=== PATIENT | male | born 1995 | race Caucasian/White ===

== ENCOUNTER 2016-06-15 10:07 | Emergency (ER) | payer OTHER ==
[2016-06-15 10:15] VITALS: BP 142/64; PULSE 69; TEMP 97.7; BMI 33.2
--- NOTE | 2016-06-15 10:51 | PDOC ---
History of Present Illness - General Chief Complaint: Injury Stated Complaint: SWOLLEN LT RING FINGER Time Seen by Provider: 06/15/16 10:47 History Source: Patient Exam Limitations: No Limitations - History of Present Illness Initial Comments: CHIEF COMPLAINT: 20 y/o afebrile male c/o left 4th finger pain and deformity x 2 months. HISTORY OF PRESENT ILLNESS: The patient states he fell onto his left hand 2 months ago. He never had it checked out because he thought it was going to heal on its own. He states it is not as swollen but is still painful and he can 't bend it or extend it. He is left handed. Vital signs on arrival are within normal limits. REVIEW OF SYSTEMS: GENERAL/CONSTITUTIONAL: no fever/chills. No weakness. No weight change. MUSCULOSKELETAL: +left 4th finger pain and deformity. No neck or back pain. SKIN: No rash or easy bruising. NEUROLOGIC: No headache, vertigo, loss of consciousness, or loss of sensation. PHYSICAL EXAM: VITAL_SIGNS: within normal limits GENERAL_APPEARANCE: alert, cooperative, mild obvious discomfort. MENTAL_STATUS: speech clear, oriented X 3, responds appropriately to questions. NEURO: motor intact and sensory intact in injured extremity. EXTREMITIES: 4th digit of left hand is deformed at the PIP joint. PIP joint in fixed flexion. Pt cannot extend or full flex at the 4th PIP joint. TTP of PIP joint. SKIN: warm, dry, good color. Past History - Past Medical History Allergies/Adverse Reactions: Allergies Allergy/AdvReac Type Severity Reaction Status Date / Time No Known Allergies Allergy Verified 06/15/16 10:15 Home Medications: Ambulatory Orders NK [No Known Home Medication] 06/15/16 Other medical history: PATIENT DENIES MEDICAL HISTORY - Psycho/Social/Smoking Cessation Hx Suicidal Ideation: No Smoking History: Never smoked Hx Alcohol Use: No Drug/Substance Use Hx: No *Physical Exam - Vital Signs Last Vital Signs Temp Pulse Resp BP Pulse Ox 97.7 F 69 18 142/64 99 06/15/16 10:12 06/15/16 10:12 06/15/16 10:12 06/15/16 10:12 06/15/16 10:12 Medical Decision Making - Medical Decision Making A/P: 20 y/o afebrile male with left 4th digit finger fracture x 2 months. Plan is as follows: 1. Xray left fingers xray left finger IMPRESSION: soft tissue swelling and deformity at the base of the fourth PIP joint with flexion deformity and possible intra-articular body as discussed above. Linear lucency at the base of the middle phalanx of the fifth digit which may reflect vascular channel versus nondisplaced fracture. Explained the results to the patient. He does state he fell onto his finger tip. He has had no fevers and does admit the swelling has improved. Splinting is unnecessary at this time as it's too far out from injury. Will send to ortho for follow up. Provided the patient with the copy of the xray results. The patient verbalizes understanding of all instructions, has no further questions and is awaiting discharge. *DC/Admit/Observation/Transfer Diagnosis at time of Disposition: Finger fracture, left Qualifiers: Encounter type: initial encounter Finger: ring finger Fracture type: closed Phalanx: middle Fracture alignment: nondisplaced Qualified Code(s): S62.655A - Nondisplaced fracture of medial phalanx of left ring finger, initial encounter for closed fracture - Discharge Dispostion Disposition: HOME Condition at time of disposition: Good - Referrals Referrals: Yosef Spencer MD [Staff Physician] - - Patient Instructions Printed Discharge Instructions: DI for Finger Fracture, How To Perform RICE ( Rest, Ice, Compress, Elevate) Additional Instructions: Discharge Instructions: -Call Dr. Spencer today to schedule follow up appointment -Bring xray results to the Orthopedic doctor -Follow RICE instructions -Return to the ER with any worsening or concerning symptoms
== END 2016-06-15 12:22 | disposition home or self-care (01) ==
LOC: JERFT 10:07
DX: S62.655A Nondisplaced fracture of middle phalanx of left ring finger, initial encounter for closed fracture (principal); W19.XXXA Unspecified fall, initial encounter; Y93.9 Activity, unspecified; Y92.89 Other specified places as the place of occurrence of the external cause; Y99.9 Unspecified external cause status
CPT/HCPCS: 73140-TC-LT; 99281-25

== ENCOUNTER 2016-06-28 11:02 | Day surgery (SDC) | payer OTHER ==
[2016-06-19 18:36] VITALS: BMI 32.3
[2016-06-28] MEDS ORDERED: MIDAZOLAM HCL 2 MG/2 ML SINGLE DOSE VIAL ONE (13:05)
[2016-06-28] MEDS ORDERED: PROPOFOL 20 ML ONE ×2 (13:07→13:41)
[2016-06-28] MEDS ORDERED: BUPIVACAINE HCL/PF 0.25% (2.5MG/ML) 10 ML VIAL IJ ONE (16:00)
[2016-06-28] MEDS ORDERED: ONDANSETRON 4 MG/2 ML VIAL ONE (16:11)
[2016-06-28] MEDS ORDERED: oxyCODONE HCL 5 MG TABLET PO PRN (16:18)
[2016-06-28] MEDS ORDERED: ONDANSETRON 4 MG/2 ML VIAL IVPUSH PRN (16:18)
[2016-06-28 17:28] VITALS: TEMP 98.7
[2016-06-28 18:14] VITALS: BP 118/84; PULSE 80
--- NOTE | 2016-06-29 18:24 | OP ---
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 POSTOPERATIVE DIAGNOSES: 1. 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 2. Early arthrosis, proximal phalanx. OPERATIVE PROCEDURE: Open treatment of left ring finger proximal interphalangeal joint fracture dislocation/malunion with open reduction and internal fixation and josselyn-hamate arthroplasty. SURGEON: Aline Jansen MD [employer] HEAD: DYLAN Castro ANESTHESIA: General. COMPLICATIONS: None. ESTIMATED BLOOD LOSS: Minimal. INDICATIONS FOR PROCEDURE: The patient is a 20-year-old male who is several months status post this injury and indicated for operative treatment. Risks, benefits, alternatives were discussed with the patient at length, and proper informed consent was obtained. I specifically explained to the patient and his mother that this is a very serious injury and very unlikely to get a complete recovery, but hopefully this treatment will optimize his recovery to the best possible. He desired to proceed. PROCEDURE: After proper identification of patient and correct operative site, patient was brought to operating room, placed supine on operating table, all prominences well padded. General anesthesia was provided by the anesthesiologist, and adequate for procedure. The left upper extremity was prepped and draped in the usual sterile fashion. A well-padded tourniquet was placed over the sterile prep. Time-out procedure was performed. Intravenous antibiotics were given. Esmarch bandage used to exsanguinate the left upper extremity. Tourniquet was inflated to 250 mmHg. A volar Rebecca incision made over the proximal interphalangeal joint. Incision was taken sharply through the skin with blunt and sharp dissection to the subcutaneous tissues. Care was taken to protect the neurovascular structures. The interval between the A2 and A4 pulleys was divided and elevated off of the flexor tendons. The flexor tendons were retracted, and the volar plate was released distally. The collateral ligaments were then released, and the joint was shotgunned. A severely depressed malunion of the base of the middle phalanx was noted, and the joint was dislocated dorsally. The proximal phalanx articular cartilage had early degenerative changes and chondromalacia. The volar 60% of the articular surface of the middle phalanx was destroyed and impacted distally. This was debrided, and a healthy bed of tissue was prepared on the volar aspect of the base of the middle phalanx. Collateral ligaments were further released in order to allow reduction of the PIP joint. A dorsal incision was then made over the 4th and 5th carpometacarpal joints. Incision was taken sharply through the skin with blunt and sharp dissection of subcutaneous tissues. Extensor mechanisms were retracted, and the capsule over the 4th and 5th carpometacarpal joints was developed. Using an oscillating saw, a josselyn-hamate allograft was taken at the ridge between the 4th and 5th carpometacarpal joints. This was taken to match the recessed area in the middle phalanx. This was then brought to the proximal interphalangeal joint and further fashioned to fit perfectly into the missing segment of the articular surface. This was held with three 1.0-mm Synthes stainless steel screws. This provided secure stable fixation. A small amount of bone graft was packed adjacent to this. The joint was then able to be reduced and was stable. It was taken through a range of motion, and 0 to 100 degrees was achievable without any stress. The volar plate was then repaired to the collateral ligaments distally, which provided further stability. Radiographs were taken in multiple planes to confirm proper reduction as well as placement and sizing of all hardware. The wound was repaired using a 5-0 fast-absorbing plain gut and Dermabond. Dorsal wound was irrigated and repaired in layers using 4-0 Vicryl and 4-0 nylon. Sterile dressings were applied. Splint was placed. The patient was reversed from anesthesia and brought to the recovery room in stable condition. He tolerated the procedure well. DYLAN Castro, the orthodontic assistant, was integral throughout this procedure. The procedure could not have been performed without a skilled operative orthodontic assistant. ALINE JANSEN M.D. [id number]
== END 2016-06-28 17:50 | disposition home or self-care (01) ==
LOC: FASU 11:02
PROVIDERS: ATTEND Orthopaedic Surgery Hand Surgery
PROC: 0RSX04Z Reposition Left Finger Phalangeal Joint with Internal Fixation Device, Open Approach (ICD-10-PCS; 2016-06-28)
PROC: 0PSV04Z Reposition Left Finger Phalanx with Internal Fixation Device, Open Approach (ICD-10-PCS; 2016-06-28)
PROC: 0RQX0ZZ Repair Left Finger Phalangeal Joint, Open Approach (ICD-10-PCS; principal; 2016-06-28 13:53)
DX: S62.615P Displaced fracture of proximal phalanx of left ring finger, subsequent encounter for fracture with malunion (principal); S63.285A Dislocation of proximal interphalangeal joint of left ring finger, initial encounter; X58.XXXD Exposure to other specified factors, subsequent encounter; X58.XXXA Exposure to other specified factors, initial encounter; Y93.9 Activity, unspecified; Y92.9 Unspecified place or not applicable
CPT/HCPCS: 73140-TC-LT; 94760

== ENCOUNTER 2016-10-03 09:47 | Emergency (ER) | payer OTHER ==
[2016-10-03 09:57] VITALS: BP 138/88; PULSE 74; TEMP 98.6; BMI 29.0
[2016-10-03] MEDS ORDERED: CIPROFLOXACIN 250 MG TABLET (RESTRICTED TO ID) PO ONE (11:23)
[2016-10-03] MEDS ORDERED: TETANUS AND DIPHTHERIA TOXOID 0.5 ML DISP.SYRIN IM ONE (11:23)
--- NOTE | 2016-10-03 11:32 | PDOC ---
History of Present Illness - General Chief Complaint: Injury Stated Complaint: INJURY Time Seen by Provider: 10/03/16 10:48 History Source: Patient Exam Limitations: No Limitations - History of Present Illness Initial Comments: 10/03/16 11:31 20 yr male with puncture wound to bottom left foot stepped on a screw today. Pt was wearing a shoe outside stepped on a screw. no PMH no surgical history. tetanus is unknown. 10/03/16 11:34 Occurred: reports: just prior to arrival Severity: Yes: mild Lower Extremity Pain Location: left: foot (plantar surface) Lower Ext. Injury Location - Specific Injury Location Foot: left foot pain (puncture wound plantar surface ) Past History - Past Medical History Allergies/Adverse Reactions: Allergies Allergy/AdvReac Type Severity Reaction Status Date / Time No Known Allergies Allergy Verified 10/03/16 09:49 Home Medications: Ambulatory Orders Ciprofloxacin [Cipro (Restricted To Id)] 250 mg PO BID #10 tablet 10/03/16 Anemia: No Asthma: No Cancer: No Cardiac Disorders: No CVA: No COPD: No CHF: No Dementia: No Diabetes: No GI Disorders: No Disorders: No HTN: No Hypercholesterolemia: No Liver Disease: No Seizures: No Thyroid Disease: No Other medical history: none - Psycho/Social/Smoking Cessation Hx Anxiety: No Suicidal Ideation: No Smoking History: Never smoked Have you smoked in the past 12 months: No Information on smoking cessation initiated: No Hx Alcohol Use: No Drug/Substance Use Hx: No Substance Use Type: None Hx Substance Use Treatment: No Review of Systems - Review of Systems Able to Perform ROS?: Yes Is the patient limited Telugu proficient: No Constitutional: No: Symptoms Reported HEENTM: No: Symptoms Reported Respiratory: No: Symptoms reported Cardiac (ROS): No: Symptoms Reported ABD/GI: No: Symptoms Reported : No: Symptoms Reported Musculoskeletal: No: Symptoms Reported Integumentary: Yes: See HPI *Physical Exam - Vital Signs Last Vital Signs Temp Pulse Resp BP Pulse Ox 98.6 F 74 18 138/88 100 10/03/16 09:50 10/03/16 09:50 10/03/16 09:50 10/03/16 09:50 10/03/16 09:50 - Physical Exam General Appearance: Yes: Nourished, Appropriately Dressed HEENT: positive: EOMI, MARTELL Neck: positive: Supple Respiratory/Chest: positive: Lungs Clear, Normal Breath Sounds Cardiovascular: positive: Regular Rhythm, Regular Rate Gastrointestinal/Abdominal: positive: Normal Bowel Sounds, Soft Musculoskeletal: positive: Normal Inspection Extremity: positive: Normal Capillary Refill, Normal Inspection, Normal Range of Motion, Other (0.5cm puncture wound to bottom of left foot mild bleeding noted ) Integumentary: positive: Normal Color, Dry, Warm Neurologic: positive: Fully Oriented, Alert, Normal Mood/Affect, Normal Response , Motor Strength 5/5 Procedures - Laceration/Wound Repair Left Plantar Foot Wound Explored: contaminated (foot cleaned with betadine scrub soaked in warm soapy water ) Sterile Dressing Applied: Yes Progress: 10/03/16 11:42 bacitracin placed with bandaid Medical Decision Making - Medical Decision Making 10/03/16 11:42 cc: puncture wound to the bottom of the foot will clean and irrigate, bacitracin placed and bandaid to bottom of foot will update tetanus and place on cipro for 5 days 10/03/16 11:55 *DC/Admit/Observation/Transfer Diagnosis at time of Disposition: Puncture wound - Discharge Dispostion Disposition: HOME Condition at time of disposition: Good - Prescriptions Prescriptions: Ciprofloxacin [Cipro (Restricted To Id)] 250 mg PO BID #10 tablet - Patient Instructions Additional Instructions: keep the wound clean and dry soak in antibacterial soap and warm water once a day cover with bandaid do not walk around barefoot or wear flip flops always wear socks follow up in ER in 48hrs for a wound check
== END 2016-10-03 12:01 | disposition home or self-care (01) ==
LOC: JERFT 09:47
PROC: 3E0234Z Introduction of Serum, Toxoid and Vaccine into Muscle, Percutaneous Approach (ICD-10-PCS; principal; 2016-10-03)
DX: S91.332A Puncture wound without foreign body, left foot, initial encounter (principal); W45.0XXA Nail entering through skin, initial encounter; Y93.89 Activity, other specified; Y92.89 Other specified places as the place of occurrence of the external cause
CPT/HCPCS: 90471; 90715; 99281-25

== ENCOUNTER 2017-05-03 05:49 | Emergency (ER) | payer OTHER ==
[2017-05-03] MEDS ORDERED: SODIUM CHLORIDE 0.9% 1000 ML INFUS.BAG IV ONE (06:23)
[2017-05-03] MEDS ORDERED: ONDANSETRON 4 MG/2 ML VIAL IVPUSH ONE (06:23)
[2017-05-03 06:27] VITALS: BMI 28.1
--- NOTE | 2017-05-03 06:28 | PDOC ---
Attending Attestation - HPI HPI: 05/03/17 06:48 The patient is a 21-year-old male, with no significant past medical history, who presents to the ED with 2 days of fever, cough, sore throat, and body aches. The patient reports experiencing a loss of appetite due to nausea, but he denies any vomiting. The patient denies any diarrhea or abdominal pain. He denies any recent sick contacts. <StuShantal - Last Filed: 05/03/17 06:48> - Resident Resident Name: Johnny Walter - ED Attending Attestation I have performed the following: I have examined & evaluated the patient, The case was reviewed & discussed with the resident, I agree w/resident's findings & plan, Exceptions are as noted - Physicial Exam PE: 05/03/17 19:29 *Physical Exam General Appearance: Yes: Appropriately Dressed. No: Apparent Distress, Intoxicated HEENT: positive: EOMI, MARTELL, Normal ENT Inspection, Normal Voice, TMs Normal, Pharynx Normal. negative: Pale Conjunctivae, Photophobia, Scleral Icterus (R), Scleral Icterus (L) Neck: positive: Trachea midline, Normal Thyroid, Supple. negative: Tender, Rigid, Carotid bruit, Stridor, Lymphadenopathy (R), Lymphadenopathy (L), Thyromegaly Respiratory/Chest: positive: Lungs Clear, Normal Breath Sounds. negative: Chest Tender, Respiratory Distress, Accessory Muscle Use, Labored Respiration, RES, Crackles, Rales, Rhonchi, Stridor, Wheezing, Dullness Cardiovascular: positive: Regular Rhythm, Regular Rate, S1, S2. negative: Edema , JVD, Murmur, Bradycardia, Tachycardia Vascular Pulses: Dorsalis-Pedis (R): 2+, Doralis-Pedis (L): 2+ Gastrointestinal/Abdominal: positive: Normal Bowel Sounds, Flat, Soft. negative : Tender, Organomegaly, Pulsatile Mass, Increased Bowel Sounds, Decreased BS, Distended, Guarding, Rebound, Hernia, Hepatomegaly, Spleenomegaly Lymphatic: negative: Adenopathy, Tenderness Musculoskeletal: positive: Normal Inspection. negative: CVA Tenderness, Decreased Range of Motion Extremity: positive: Normal Capillary Refill, Normal Inspection, Normal Range of Motion, Pelvis Stable. negative: Tender, Pedal Edema, Swelling, Erythema Integumentary: positive: Normal Color, Dry, Warm. negative: Cyanotic, Erythema , Jaundice, Rash Neurologic: positive: senior mechanical designer II-XII NML intact, Fully Oriented, Alert, Normal Mood/ Affect, Motor Strength 5/5. negative: EOM Palsy, Facial Droop, Sensory Deficit - Medical Decision Making 05/03/17 19:29 Pt treated and released <Ubaldo Garvey - Last Filed: 05/03/17 19:30> Attestations - Attestations 05/03/17 06:48 Documentation prepared by Shantal Peraza, acting as medical sales consultant for Ubaldo Garvey MD. <Shantal Preaza - Last Filed: 05/03/17 06:48>
[2017-05-03] MEDS ORDERED: OSELTAMIVIR PHOSPHATE 75 MG CAPSULE PO SCH ×2 (06:38→10:00)
[2017-05-03] MEDS ORDERED: OSELTAMIVIR PHOSPHATE 75 MG CAPSULE ONE (06:39)
[2017-05-03] MEDS ORDERED: ONDANSETRON 4 MG/2 ML VIAL ONE (06:39)
--- NOTE | 2017-05-03 06:44 | PDOC ---
History of Present Illness - General Chief Complaint: Sore Throat Stated Complaint: SORE THROAT/HEADACHE Time Seen by Provider: 05/03/17 06:22 History Source: Patient Exam Limitations: No Limitations - History of Present Illness Initial Comments: 05/03/17 06:38 The patient is a 21M with no PMH who presents to the ER with complaints of sore throat and fever. The patient states that 2 days ago he began to develop a sore throat, cough, and then subsequently developed a fever and muscle aches, particularly in his lower back and arms. He also states he has not had an appetite and has been nauseous but denies any vomiting. He denies any sick contacts. Past History - Past Medical History Allergies/Adverse Reactions: Allergies Allergy/AdvReac Type Severity Reaction Status Date / Time No Known Allergies Allergy Verified 05/03/17 06:15 Home Medications: Ambulatory Orders Oseltamivir Phosphate [Tamiflu -] 75 mg PO BID #9 capsule 05/03/17 Anemia: No Asthma: No Cancer: No Cardiac Disorders: No CVA: No COPD: No CHF: No Dementia: No Diabetes: No GI Disorders: No Disorders: No HTN: No Hypercholesterolemia: No Liver Disease: No Seizures: No Thyroid Disease: No - Suicide/Smoking/Psychosocial Hx Smoking History: Never smoked Have you smoked in the past 12 months: No Information on smoking cessation initiated: No Hx Alcohol Use: No Drug/Substance Use Hx: No Substance Use Type: None Hx Substance Use Treatment: No Review of Systems - Review of Systems Able to Perform ROS?: Yes Comments:: 05/03/17 06:40 GENERAL/CONSTITUTIONAL: Positive for fevers and chills. No weakness. HEAD, EYES, EARS, NOSE AND THROAT: Positive for sore throat. No change in vision. No ear pain or discharge. CARDIOVASCULAR: No chest pain, palpitations, or lightheadedness. RESPIRATORY: Positive for cough. No wheezing, shortness of breath, or hemoptysis. GASTROINTESTINAL: Positive for nausea. No vomiting, diarrhea, constipation, or abdominal pain. GENITOURINARY: No dysuria, frequency, hematuria, or change in urination. MUSCULOSKELETAL: Postive for myalgias. No neck or back pain. SKIN: No rash or lesions. NEUROLOGIC: Positive for headache. No numbness, tingling, weakness, loss of consciousness, or change in strength/sensation. ENDOCRINE: No increased thirst. No abnormal weight change. HEMATOLOGIC/LYMPHATIC: No anemia, easy bleeding, or history of blood clots. ALLERGIC/IMMUNOLOGIC: No hives or skin allergy. Is the patient limited Omani proficient: No *Physical Exam - Vital Signs Last Vital Signs Temp Pulse Resp BP Pulse Ox 102.4 F H 112 H 20 163/88 98 05/03/17 06:15 05/03/17 06:15 05/03/17 06:15 05/03/17 06:15 05/03/17 06:15 - Physical Exam Comments: 05/03/17 06:41 GENERAL: Well developed, well nourished. Awake and alert. No acute distress. HEENT: Normocephalic, atraumatic. Hearing grossly normal. Moist mucous membranes. PERRLA, EOMI. No conjunctival pallor. Sclera are non-icteric. Oropharynx is erythematous with mildly swollen tonsils bilaterally. No SALESPERSON BOOKS noted. NECK: Supple. Full ROM. No JVD. Mild lymphadenopathy. CARDIOVASCULAR: Regular rate and rhythm. No murmurs, rubs, or gallops. PULMONARY: No evidence of respiratory distress. Lungs clear to auscultation bilaterally. No wheezing, rales or rhonchi. ABDOMINAL: Soft. Non-tender. Non-distended. No rebound or guarding. GENITOURINARY: No CVA tenderness bilaterally. MUSCULOSKELETAL: Normal range of motion at all joints. No bony deformities or tenderness. EXTREMITIES: No cyanosis. No clubbing. No edema. No calf tenderness. SKIN: Warm and dry. Normal capillary refill. No rashes. No jaundice. NEUROLOGICAL: Alert, awake, appropriate. Cranial nerves 2-12 intact. Normal speech. Gait is normal without ataxia. PSYCHIATRIC: Cooperative. Good eye contact. Appropriate mood and affect. ED Treatment Course - LABORATORY CBC & Chemistry Diagram: 05/03/17 06:31 05/03/17 06:31 Medical Decision Making - Medical Decision Making 05/03/17 06:42 The patient is a 21M with no PMH who presents with flu-like symptoms. Labs sent including rapid strep. Meds given for nausea and fever, and hydration with NS. Pending labs and d/c with tamiflu prescription. 05/03/17 06:55 Pt signed out to Dr. Morgan, day team. *DC/Admit/Observation/Transfer Diagnosis at time of Disposition: Sore throat - Discharge Dispostion Disposition: HOME Condition at time of disposition: Stable Admit: No - Prescriptions Prescriptions: Oseltamivir Phosphate [Tamiflu -] 75 mg PO BID #9 capsule - Referrals Referrals: Eros Landon [Primary Care Provider] - - Patient Instructions Printed Discharge Instructions: Sore Throat Additional Instructions: Please return to the ER if you have any signs or symptoms of chest pain, shortness of breath, uncontrollable fever, chills, nausea, vomiting, numbness, tingling, or weakness in any part of your body, changes in vision, or slurred speech. Please take your medications as prescribed. Please follow up with your primary care physician in 2-3 days. Please return to the ER if symptoms persist, worsen, or new symptoms arise. - Post Discharge Activity
[2017-05-03 06:48] LABS: BASO % 0.5 % (0-2.0); HEMATOCRIT 42.7 % (35.4-49); LYMPH % 9.1 % (8-40); MCH 31.5 pg (25.7-33.7); MCHC 35.2 g/dl (32.0-35.9); MEAN CELL VOLUME 89.5 fl (80-96); MEAN PLT VOLUME 8.4 fl (7.5-11.1); MONO % 12.1 % (3.8-10.2); NEUT % 78.3 % (42.8-82.8); PLATELET COUNT 186 K/MM3 (134-434); RBC 4.77 M/mm3 (4.00-5.60); RDW 12.8 % (11.9-15.9)
[2017-05-03] MEDS ORDERED: OSELTAMIVIR PHOSPHATE 75 MG CAPSULE PO ONE (07:00)
[2017-05-03 07:05] LABS: URINE APPEARANCE CLEAR; URINE BILIRUBIN NEGATIVE (<2.0 mg/dL); URINE BLOOD NEGATIVE (NEGATIVE); URINE COLOR AMBER; URINE GLUCOSE (UA) NEGATIVE (NEGATIVE); URINE KETONE NEGATIVE (NEGATIVE); URINE LEUK ESTERASE NEGATIVE (NEGATIVE); URINE NITRITE NEGATIVE (NEGATIVE); URINE UROBILINOGEN 4.0 E.U/dl mg/dL (0.2-1.0)
[2017-05-03] MEDS ORDERED: ACETAMINOPHEN 325 MG TABLET (FP) PO ONE (07:07)
[2017-05-03 07:09] LABS: URINE PROTEIN 1+ (NEGATIVE)
[2017-05-03 07:10] LABS: EPI CELLS RARE /HPF (FEW); URINE MUCUS MODERATE
[2017-05-03 07:11] LABS: ALBUMIN 4.3 g/dl (3.4-5.0); ALK PHOS 81 U/L (45-117); ANION GAP 12 (8-16); BILIRUBIN,TOTAL 0.8 mg/dL (0.2-1.0); BLOOD UREA NITROGEN 13 mg/dL (7-18); CALCIUM 9.1 mg/dL (8.5-10.1); CHLORIDE 99 mmol/L (98-107); CO2 26 mmol/L (21-32); CREATININE 1.3 mg/dL (0.7-1.3); GLUCOSE,RANDOM 109 mg/dL (74-106); POTASSIUM 4.2 mmol/L (3.5-5.1); SGOT/AST 28 U/L (15-37); SGPT/ALT 38 U/L (12-78); SODIUM 137 mmol/L (136-145); TOT PROT 7.8 g/dl (6.4-8.2)
--- NOTE | 2017-05-03 07:14 | PDOC ---
*Physical Exam - Vital Signs Last Vital Signs Temp Pulse Resp BP Pulse Ox 102.4 F H 112 H 20 163/88 98 05/03/17 06:15 05/03/17 06:15 05/03/17 06:15 05/03/17 06:15 05/03/17 06:15 - Physical Exam Comments: 05/03/17 08:45 GENERAL: Awake, alert, and fully oriented, in no acute distress EYES: PERRLA, EOMI, sclera anicteric, conjunctiva clear ENT: Oropharynx clear without exudates. Moist mucosa NECK: Nontender, Normal ROM, supple, no lymphadenopathy LUNGS: Breath sounds equal, clear to auscultation bilaterally. No wheezes, and no crackles HEART: Regular rate and rhythm, normal S1 and S2, no murmurs, rubs or gallops ABDOMEN: Soft, nontender, normoactive bowel sounds. No guarding, no rebound. No masses ED Treatment Course - LABORATORY CBC & Chemistry Diagram: 05/03/17 06:31 05/03/17 06:31 - ADDITIONAL ORDERS Additional order review: Laboratory Results 05/03/17 06:50 Urine Color Dejah Urine Appearance Clear Urine pH 6.0 Ur Specific [place] 1.030 Urine Protein 1+ H Urine Glucose (UA) Negative Urine Ketones Negative Urine Blood Negative Urine Nitrite Negative Urine Bilirubin Negative Urine Urobilinogen 4.0 e.u/dl Ur Leukocyte Esterase Negative 05/03/17 06:31 Group A Strep Rapid Antigen - Preliminary Throat - Medications Given in the ED: ED Medications Discontinued Medications Generic Name Dose Route Start Last Admin Trade Name Freq PRN Reason Stop Dose Admin Ondansetron HCl 4 mg 05/03/17 06:23 05/03/17 07:01 Zofran Injection IVPUSH 05/03/17 06:24 4 mg ONCE ONE Administration Sodium Chloride 1,000 ml 05/03/17 06:23 05/03/17 07:00 Normal Saline - IV 05/03/17 06:24 1,000 ml ONCE ONE Administration Medical Decision Making - Medical Decision Making 05/03/17 07:14 Patient signed out by Dr. Walter (Resident) and Dr. Garvey (Attending) 21 year old male present with 2 day h/o sore throat, non-productive cough, myalgias. Febrile + tachycardic @ presentation. Patient recieving IV NS, c/o chills. Physical exam shows supple neck, mildly erythematous oropharnyx w/o exudates, lungs CLTA, B/L paraspinal tenderness. Rapid Strep negative. CBC/CMP and UA pending. Will send Influenza A. 05/03/17 08:21 Patient awake, tolerating PO intake. Influenza pending. 05/03/17 08:42 Repeat VS significant for Temp 101, tachycardia resolved. Will give Toradol. Reasess. Influenza A pending. 05/03/17 08:57 Influenza A negative. Will recheck VS following Toradol administration 05/03/17 09:23 Repeat Temp 101 @ bedside. Attending exam negative for midline spinal tenderness Will discharge patient home with strong return precautions, PMD follow-up and alternating Motrin/Tylenol for fever. I discussed the physical exam findings, ancillary test results and final diagnoses with the patient. I answered all of the patient's questions. The patient was satisfied with the care received and felt comfortable with the discharge plan and treatment plan. The patient will return to the Emergency Department with any new, persistent or worsening symptoms. *DC/Admit/Observation/Transfer Diagnosis at time of Disposition: Sore throat - Discharge Dispostion Disposition: HOME Condition at time of disposition: Stable - Prescriptions Prescriptions: Oseltamivir Phosphate [Tamiflu -] 75 mg PO BID #9 capsule - Referrals Referrals: Eros Landon [Primary Care Provider] - - Patient Instructions Printed Discharge Instructions: Sore Throat Additional Instructions: Please return to the ER if you have any signs or symptoms of chest pain, shortness of breath, uncontrollable fever, chills, nausea, vomiting, numbness, tingling, or weakness in any part of your body, changes in vision, or slurred speech. Please take your medications as prescribed and alternate between Motrin and Tylenol for fever and pain. Please follow up with your primary care physician in 2-3 days. Please return to the ER if symptoms persist, worsen, or new symptoms arise. - Post Discharge Activity
[2017-05-03] MEDS ORDERED: KETOROLAC TROMETHAMINE 30 MG/1 ML VIAL IVPUSH ONE (08:40)
--- NOTE | 2017-05-03 09:05 | PDOC ---
*Physical Exam - Vital Signs Last Vital Signs Temp Pulse Resp BP Pulse Ox 101.8 F H 87 18 117/67 95 05/03/17 08:40 05/03/17 08:40 05/03/17 08:40 05/03/17 08:40 05/03/17 08:40 - Physical Exam Comments: 05/03/17 09:03 Temp slightly improved at 101.8, tachycardia resolved Asleep in stretcher but easily arousable and well-appearing, speaking full sentences with no acute distress Lungs are clear, heart is regular without murmur Abdomen is benign Oropharynx clear, neck supple, no rash No back swelling/redness or tenderness, neuro intact ED Treatment Course - LABORATORY CBC & Chemistry Diagram: 05/03/17 06:31 05/03/17 06:31 - ADDITIONAL ORDERS Additional order review: Laboratory Results 05/03/17 05/03/17 06:50 06:31 Sodium 137 Potassium 4.2 Chloride 99 Carbon Dioxide 26 Anion Gap 12 BUN 13 Creatinine 1.3 Creat Clearance w eGFR > 60 Random Glucose 109 H Calcium 9.1 Total Bilirubin 0.8 AST 28 ALT 38 Alkaline Phosphatase 81 Total Protein 7.8 Albumin 4.3 Urine Color Dejah Urine Appearance Clear Urine pH 6.0 Ur Specific [place] 1.030 Urine Protein 1+ H Urine Glucose (UA) Negative Urine Ketones Negative Urine Blood Negative Urine Nitrite Negative Urine Bilirubin Negative Urine Urobilinogen 4.0 e.u/dl Ur Leukocyte Esterase Negative Urine WBC (Auto) 1 Urine RBC (Auto) 5 Ur Epithelial Cells Rare Urine Mucus Moderate 05/03/17 07:10 Influenza Types A,B Antigen (JENNIE) - Final Nasopharyngeal Swab - Final 05/03/17 06:31 Group A Strep Rapid Antigen - Final Throat 05/03/17 06:31 RBC 4.77 MCV 89.5 MCHC 35.2 RDW 12.8 MPV 8.4 Neutrophils % 78.3 Lymphocytes % 9.1 Monocytes % 12.1 H Eosinophils % 0.0 Basophils % 0.5 - Medications Given in the ED: ED Medications Discontinued Medications Generic Name Dose Route Start Last Admin Trade Name Freq PRN Reason Stop Dose Admin Acetaminophen 650 mg 05/03/17 07:07 05/03/17 07:40 Tylenol - PO 05/03/17 07:08 650 mg ONCE ONE Administration Ondansetron HCl 4 mg 05/03/17 06:23 05/03/17 07:01 Zofran Injection IVPUSH 05/03/17 06:24 4 mg ONCE ONE Administration Oseltamivir Phosphate 75 mg 05/03/17 07:00 05/03/17 07:40 Tamiflu - PO 05/03/17 07:01 75 mg ONCE ONE Administration Sodium Chloride 1,000 ml 05/03/17 06:23 05/03/17 07:00 Normal Saline - IV 05/03/17 06:24 1,000 ml ONCE ONE Administration Medical Decision Making - Medical Decision Making 05/03/17 09:03 Received signout on this healthy 21-year-old male who presented with febrile syndrome, body aches and sore throat. Clinically not consistent with strep pharyngitis, no focal findings on examination. At time of sign out, patient had been given antiemetics and IV fluids, strep was negative and he was treated empirically with Tamiflu. Plan was to follow up labs, reassess. Patient remains well appearing, his labs are within normal limits without significant leukocytosis, urinalysis is clear. No recent dental work, no IV drug use, no injuries or spine hardware. Influenza swab was sent and is negative. Given antipyretics, feels well, will reassess after vital signs and distal accordingly. No indication for further emergent workup at this time. *DC/Admit/Observation/Transfer Diagnosis at time of Disposition: Sore throat - Discharge Dispostion Disposition: HOME Condition at time of disposition: Stable - Prescriptions Prescriptions: Oseltamivir Phosphate [Tamiflu -] 75 mg PO BID #9 capsule - Referrals Referrals: Eros Landon [Primary Care Provider] - - Patient Instructions Printed Discharge Instructions: Sore Throat Additional Instructions: Please return to the ER if you have any signs or symptoms of chest pain, shortness of breath, uncontrollable fever, chills, nausea, vomiting, numbness, tingling, or weakness in any part of your body, changes in vision, or slurred speech. Please take your medications as prescribed. Please follow up with your primary care physician in 2-3 days. Please return to the ER if symptoms persist, worsen, or new symptoms arise. - Post Discharge Activity
[2017-05-03 09:53] VITALS: BP 111/77; PULSE 95; TEMP 100.4
== END 2017-05-03 09:54 | disposition home or self-care (01) ==
LOC: JER 05:49
PROC: 3E033GC Introduction of Other Therapeutic Substance into Peripheral Vein, Percutaneous Approach (ICD-10-PCS; principal; 2017-05-03)
PROC: 3E0333Z Introduction of Anti-inflammatory into Peripheral Vein, Percutaneous Approach (ICD-10-PCS; 2017-05-03)
DX: J02.9 Acute pharyngitis, unspecified (principal)
CPT/HCPCS: 36415; 80053; 81003; 81015; 85025; 87070; 87430; 87804; 99285-25; J7030

== ENCOUNTER 2017-05-03 19:04 | Emergency (ER) | payer OTHER ==
[2017-05-03 19:50] VITALS: BMI 29.7
--- NOTE | 2017-05-03 21:09 | PDOC ---
History of Present Illness - General Chief Complaint: Cold Symptoms Stated Complaint: COLD SYMPTOMS Time Seen by Provider: 05/03/17 21:09 History Source: Patient - History of Present Illness Initial Comments: 05/03/17 21:45 21 year old male with NV, fever and suprapubic pain x 2 days. patient seen in the ER earlier and diagnosed with viral syndrome. denies cough, nasal congestion , headache, neck pain, patient currently on tamiflu and ibuprofen. patient reports that he is having dark urine despite fever reducers patient with bodyaches and fever. Past History - Past Medical History Allergies/Adverse Reactions: Allergies Allergy/AdvReac Type Severity Reaction Status Date / Time No Known Allergies Allergy Verified 05/03/17 06:15 Home Medications: Ambulatory Orders Oseltamivir Phosphate [Tamiflu -] 75 mg PO BID #9 capsule 05/03/17 Doxycycline Monohydrate [Mondoxyne Nl] 100 mg PO BID #28 capsule 05/04/17 Anemia: No Asthma: No Cancer: No Cardiac Disorders: No CVA: No COPD: No CHF: No Dementia: No Diabetes: No GI Disorders: No Disorders: No HTN: No Hypercholesterolemia: No Liver Disease: No Seizures: No Thyroid Disease: No - Suicide/Smoking/Psychosocial Hx Smoking History: Never smoked Have you smoked in the past 12 months: No Hx Alcohol Use: No Drug/Substance Use Hx: No Substance Use Type: None Hx Substance Use Treatment: No *Physical Exam - Vital Signs Last Vital Signs Temp Pulse Resp BP Pulse Ox 101.9 F H 126 H 20 155/80 100 05/03/17 19:48 05/03/17 19:48 05/03/17 19:48 05/03/17 19:48 05/03/17 19:48 - Physical Exam General Appearance: Yes: Mild Distress Respiratory/Chest: positive: Lungs Clear, Normal Breath Sounds Male Genitalia: positive: normal genitalia, testicular tenderness (left testicular tenderness) Extremity: positive: Normal Capillary Refill, Normal Inspection, Normal Range of Motion Integumentary: positive: Normal Color, Dry, Warm Neurologic: positive: Fully Oriented, Alert, Normal Mood/Affect ED Treatment Course - LABORATORY CBC & Chemistry Diagram: 05/03/17 21:45 05/03/17 21:45 Medical Decision Making - Medical Decision Making A: fever ; testicular pain P: cbc cmp ua CTAP 05/03/17 23:33 patient c/o left testicular pain and suprapubic pain. LEft testicular + cremasteric reflex. will u/s to r/o torsion 05/04/17 00:03 05/04/17 00:47 CTAP : no acute finding. normal appendix US: pending . no signs of acute torsion. wet read epidydimitis? , pending official read. will treat with doxycycline. 05/04/17 01:30 *DC/Admit/Observation/Transfer Diagnosis at time of Disposition: Testicular pain, Acute epididymitis Fever Qualifiers: Fever type: unspecified Qualified Code(s): R50.9 - Fever, unspecified Abdominal pain Qualifiers: Abdominal location: lower abdomen, unspecified Qualified Code(s): R10.30 - Lower abdominal pain, unspecified - Discharge Dispostion Disposition: HOME - Prescriptions Prescriptions: Doxycycline Monohydrate [Mondoxyne Nl] 100 mg PO BID #28 capsule - Referrals Referrals: Eros Landon [Primary Care Provider] - Call tomorrow - Patient Instructions Printed Discharge Instructions: DI for Viral Syndrome Additional Instructions: drink plenty of fluids. take tylenol every 6 hours as needed for fever take ibuprofen every 6 hours as needed for fever follow up with your doctor as soon as possible. - Post Discharge Activity Forms/Work/School Notes: Back to Work
[2017-05-03] MEDS ORDERED: ONDANSETRON 4 MG/2 ML VIAL IVPUSH ONE (21:23)
[2017-05-03] MEDS ORDERED: SODIUM CHLORIDE 1,000 ML IV STA (21:23)
[2017-05-03] MEDS ORDERED: ACETAMINOPHEN 1000 MG/100 ML VIAL (NON FORMULARY) IVPB ONE (21:23)
--- NOTE | 2017-05-03 21:25 | PDOC ---
*Physical Exam - Vital Signs Last Vital Signs Temp Pulse Resp BP Pulse Ox 101.9 F H 126 H 20 155/80 100 05/03/17 19:48 05/03/17 19:48 05/03/17 19:48 05/03/17 19:48 05/03/17 19:48 Medical Decision Making - Medical Decision Making 05/03/17 21:24 agree with care from DAKSHA Boss *DC/Admit/Observation/Transfer - Referrals Referrals: Eros Landon [Primary Care Provider] - - Patient Instructions - Post Discharge Activity
[2017-05-03] MEDS ORDERED: ONDANSETRON 4 MG/2 ML VIAL ONE (21:51)
[2017-05-03] MEDS ORDERED: ACETAMINOPHEN INJECTION 100 ML IVPB ONE (21:51)
[2017-05-03] MEDS ORDERED: FUROSEMIDE 40 MG/4 ML INJECTABLE VIAL IVPUSH ONE (21:55)
[2017-05-03 22:09] LABS: BASO % 0.4 % (0-2.0); HEMATOCRIT 42.2 % (35.4-49); HEMOGLOBIN 14.7 GM/dL (11.7-16.9); MCH 31.3 pg (25.7-33.7); MCHC 34.9 g/dl (32.0-35.9); MEAN CELL VOLUME 89.7 fl (80-96); MEAN PLT VOLUME 8.9 fl (7.5-11.1); MONO % 10.9 % (3.8-10.2); NEUT % 77.7 % (42.8-82.8); PLATELET COUNT 163 K/MM3 (134-434); RBC 4.71 M/mm3 (4.00-5.60); RDW 12.9 % (11.9-15.9); WHITE BLOOD COUNT 8.9 K/mm3 (4.0-10.0)
[2017-05-03 22:23] LABS: URINE APPEARANCE CLEAR; URINE BILIRUBIN NEGATIVE (<2.0 mg/dL); URINE BLOOD NEGATIVE (NEGATIVE); URINE COLOR AMBER; URINE GLUCOSE (UA) NEGATIVE (NEGATIVE); URINE KETONE TRACE (NEGATIVE); URINE LEUK ESTERASE NEGATIVE (NEGATIVE); URINE NITRITE NEGATIVE (NEGATIVE); URINE UROBILINOGEN 4.0 E.U/dl mg/dL (0.2-1.0)
[2017-05-03 22:31] LABS: ANION GAP 8 (8-16); BLOOD UREA NITROGEN 14 mg/dL (7-18); CALCIUM 8.6 mg/dL (8.5-10.1); CHLORIDE 102 mmol/L (98-107); CO2 25 mmol/L (21-32); CREATININE 1.3 mg/dL (0.7-1.3); GLUCOSE,RANDOM 112 mg/dL (74-106); POTASSIUM 3.9 mmol/L (3.5-5.1); SODIUM 135 mmol/L (136-145)
[2017-05-03 22:42] LABS: URINE PROTEIN 1+ (NEGATIVE)
[2017-05-03 22:47] LABS: EPI CELLS RARE /HPF (FEW); URINE MUCUS RARE
[2017-05-03] MEDS ORDERED: IBUPROFEN 600 MG TABLET (FP) PO ONE ×2 (23:32→23:41)
[2017-05-04 01:57] VITALS: BP 115/60; PULSE 86; TEMP 99
== END 2017-05-04 02:04 | disposition home or self-care (01) ==
LOC: JER 19:04
PROC: 3E033GC Introduction of Other Therapeutic Substance into Peripheral Vein, Percutaneous Approach (ICD-10-PCS; principal; 2017-05-03)
PROC: 3E033NZ Introduction of Analgesics, Hypnotics, Sedatives into Peripheral Vein, Percutaneous Approach (ICD-10-PCS; 2017-05-03)
DX: N45.1 Epididymitis (principal)
CPT/HCPCS: 36415; 74176-TC; 76870-TC; 80048; 81003; 81015; 85025; 99284-25; J0131; J7030

== ENCOUNTER 2018-07-19 12:47 | Emergency (ER) | payer OTHER ==
[2018-07-19 13:00] VITALS: BMI 31.6
[2018-07-19] MEDS ORDERED: SODIUM CHLORIDE 1,000 ML IV STA ×2 (13:02→14:37)
--- NOTE | 2018-07-19 13:05 | PDOC ---
Rapid Medical Evaluation Chief Complaint: Lightheaded Time Seen by Provider: 07/19/18 12:57 Medical Evaluation: Allergies Allergy/AdvReac Type Severity Reaction Status Date / Time No Known Allergies Allergy Verified 07/19/18 12:57 Vital Signs Temp Pulse Resp BP Pulse Ox 98.2 F 81 18 151/79 99 07/19/18 12:57 07/19/18 12:57 07/19/18 12:57 07/19/18 12:57 07/19/18 12:57 07/19/18 13:03 Patient complaints of: gen fatigue and weakness x 3 days, today brief episode of disorientation with tingling to hands and feet, no visual complaints/headache , no fever, travel, head injury, drug use Patient on brief exam: vss, ao x3 Patient ordered for: labs, urine cxr, ekg and head ct Patient to proceed to the ED Discharge Disposition - Diagnosis Weakness - Referrals - Patient Instructions - Post Discharge Activity
[2018-07-19 13:39] LABS: BASO % 0.8 % (0-2.0); HEMATOCRIT 44.3 % (35.4-49); HEMOGLOBIN 15.2 GM/dL (11.7-16.9); MCH 30.2 pg (25.7-33.7); MCHC 34.2 g/dl (32.0-35.9); MEAN CELL VOLUME 88.3 fl (80-96); MEAN PLT VOLUME 8.9 fl (7.5-11.1); MONO % 9.4 % (3.8-10.2); NEUT % 48.8 % (42.8-82.8); PLATELET COUNT 208 K/MM3 (134-434); RBC 5.02 M/mm3 (4.00-5.60); RDW 13.1 % (11.9-15.9); WHITE BLOOD COUNT 4.5 K/mm3 (4.0-10.0)
--- NOTE | 2018-07-19 13:46 | PDOC ---
History of Present Illness - General Chief Complaint: Lightheaded Stated Complaint: COLD SYMPTOMS Time Seen by Provider: 07/19/18 12:57 History Source: Patient Exam Limitations: No Limitations - History of Present Illness Initial Comments: 07/19/18 13:56 CHIEF COMPLAINT: Dizziness HISTORY OF PRESENT ILLNESS: This is an otherwise healthy 22-year-old male who presents to the ED for evaluation of dizziness/lightheadedness and a brief period of disorientation today. He reports that he woke up with a severe headache on the right side of his head with several episodes of vomiting. This resolved after taking 2 tablets of Tylenol, however when driving to meet his father, he felt dizzy/lightheaded and momentarily disoriented/unsure of where he was. He denies focal weakness/numbness, changes in speech, blurred vision, neck pain/stiffness, fevers/chills, abdominal pain, or any other symptoms. Vital signs on arrival are notable for mild hypertension: BP 151/79. REVIEW OF SYSTEMS: GENERAL/CONSTITUTIONAL: No fever or chills. No weakness. No weight change. HEAD, EYES, EARS, NOSE AND THROAT: No change in vision. No ear pain or discharge. No sore throat. CARDIOVASCULAR: No chest pain or palpitations. RESPIRATORY: No cough, wheezing, or shortness of breath. GASTROINTESTINAL: Nausea/vomiting, resolved. No abdominal pain, diarrhea, or constipation. GENITOURINARY: No dysuria, frequency, or change in urination. MUSCULOSKELETAL: No joint or muscle swelling or pain. No neck or back pain. SKIN: No rash or easy bruising. NEUROLOGIC: See HPI. PSYCHIATRIC: No depression or anxiety. ENDOCRINE: No increased thirst. No abnormal weight change. HEMATOLOGIC/LYMPHATIC: No anemia, easy bleeding, or history of blood clots. ALLERGIC/IMMUNOLOGIC: No hives or skin allergy. No latex allergy. PHYSICAL EXAM: GENERAL: The patient is awake, alert, and fully oriented, in no acute distress. HEAD: Normal with no signs of trauma. ENT: Pharyngeal erythema. Pupils equal, round and reactive to light, extraocular movements intact, sclera anicteric, conjunctiva clear. Neck supple. LUNGS: Clear to auscultation bilaterally. Normal excursion. No respiratory distress or use of accessory muscles. CV: RRR, S1/S2, no MRG. Cap refill < 2 sec. ABDOMEN: Soft, non-distended, non-tender. EXTREMITIES: Normal range of motion, no edema. NEUROLOGICAL: Normal speech, normal gait. CN II-XII grossly intact. NIHSS=0. PSYCH: Normal mood, normal affect. SKIN: Warm, dry, normal turgor, no rashes or lesions noted. 07/19/18 13:57 Past History - Past Medical History Allergies/Adverse Reactions: Allergies Allergy/AdvReac Type Severity Reaction Status Date / Time No Known Allergies Allergy Verified 07/19/18 12:57 Home Medications: Ambulatory Orders Oseltamivir Phosphate [Tamiflu -] 75 mg PO BID #9 capsule 05/03/17 Doxycycline Monohydrate [Mondoxyne Nl] 100 mg PO BID #28 capsule 05/04/17 Anemia: No Asthma: No Cancer: No Cardiac Disorders: No CVA: No COPD: No CHF: No Dementia: No Diabetes: No GI Disorders: No Disorders: No HTN: No Hypercholesterolemia: No Liver Disease: No Seizures: No Thyroid Disease: No - Suicide/Smoking/Psychosocial Hx Smoking History: Never smoked Have you smoked in the past 12 months: No Hx Alcohol Use: No Drug/Substance Use Hx: No Substance Use Type: None Hx Substance Use Treatment: No *Physical Exam - Vital Signs Last Vital Signs Temp Pulse Resp BP Pulse Ox 98.2 F 81 18 151/79 99 07/19/18 12:57 07/19/18 12:57 07/19/18 12:57 07/19/18 12:57 07/19/18 12:57 ED Treatment Course - LABORATORY CBC & Chemistry Diagram: 07/19/18 13:20 07/19/18 13:20 Medical Decision Making - Medical Decision Making 07/19/18 13:59 A/P: 22-year-old male with multiple symptoms, most concerning for dizziness/ lightheadedness with. If disorientation following a severe headache and vomiting this morning. 1. Head CT 2. EKG 3. Labs including CBC, CMP, UA, throat culture 4. IV hydration 5. Reassess 07/19/18 15:00 CT head: No acute intracranial process Labs unremarkable 07/19/18 18:50 CTA brain: No aneurysm or major branch occlusion per preliminary imaging manager information report. Patient is feeling much better and is eager to go home. Follow-up instructions and return precautions reviewed. *DC/Admit/Observation/Transfer Diagnosis at time of Disposition: Dizziness, Near syncope - Referrals Referrals: Eros Landon [Primary Care Provider] - 3 days - Patient Instructions Printed Discharge Instructions: DI for Dizziness-Nonvertigo Additional Instructions: Rest and stay well hydrated Follow-up with Dr. Landon next week Return for repeated episodes of headache/dizziness/fainting or near fainting/ any other concerning symptoms - Post Discharge Activity
[2018-07-19 14:00] LABS: ALBUMIN 4.2 g/dl (3.4-5.0); BILIRUBIN,TOTAL 0.5 mg/dL (0.2-1); BLOOD UREA NITROGEN 11.2 mg/dL (7-18); CALCIUM 9.2 mg/dL (8.5-10.1); CREATININE 1.1 mg/dL (0.55-1.3); POTASSIUM 4.3 mmol/L (3.5-5.1); TOT PROT 7.6 g/dl (6.4-8.2)
[2018-07-19 19:13] VITALS: BP 128/74; PULSE 74; TEMP 98
--- NOTE | 2018-07-21 17:17 | EKG ---
Test Reason : Blood Pressure : / mmHG Vent. Rate : 064 BPM Atrial Rate : 064 BPM P-R Int : 144 ms QRS Dur : 096 ms QT Int : 386 ms P-R-T Axes : 043 050 042 degrees QTc Int : 398 ms NORMAL SINUS RHYTHM EARLY REPOLARIZATION NORMAL ECG NO PREVIOUS ECGS AVAILABLE Confirmed by MD RICARDO, DEDE ([id number]) on 07/21/2018 5:16:50 PM Referred By: Confirmed By:DEDE SILVA MD
== END 2018-07-19 19:00 | disposition home or self-care (01) ==
LOC: JER 12:47
PROC: 3E0337Z Introduction of Electrolytic and Water Balance Substance into Peripheral Vein, Percutaneous Approach (ICD-10-PCS; principal; 2018-07-19)
DX: R42 Dizziness and giddiness (principal); R55 Syncope and collapse
CPT/HCPCS: 36415; 70450-TC; 70496-TC; 71046-TC-FY; 80053; 83735; 85025; 87070; 87880; 93005; 93010; 96360; 96361; 99284-25; J7030

== ENCOUNTER 2018-12-23 20:51 | Emergency (ER) | payer OTHER ==
--- NOTE | 2018-12-23 21:07 | PDOC ---
Rapid Medical Evaluation Chief Complaint: Colic Time Seen by Provider: 12/23/18 21:03 Medical Evaluation: Allergies Allergy/AdvReac Type Severity Reaction Status Date / Time No Known Allergies Allergy Verified 07/19/18 12:57 12/23/18 21:05 I have performed a brief in-person evaluation of this patient. The patient presents with a chief complaint of:stomach cramps on and off x 2 days. today with rectal pain and possible hemorhoid. No bleeding/ No fevers Pertinent physical exam findings: abd soft , no guarding I have ordered the following: nothing The patient will proceed to the ED for further evaluation. Discharge Disposition - Diagnosis Stomach cramps, generalized - Referrals - Patient Instructions - Post Discharge Activity
[2018-12-23 21:08] VITALS: BP 148/80; PULSE 88; TEMP 98.2; BMI 31.2
--- NOTE | 2018-12-23 22:41 | PDOC ---
History of Present Illness - General Chief Complaint: Colic Stated Complaint: ABD PAIN Time Seen by Provider: 12/23/18 21:03 Past History - Past Medical History Allergies/Adverse Reactions: Allergies Allergy/AdvReac Type Severity Reaction Status Date / Time No Known Allergies Allergy Verified 12/23/18 21:08 Home Medications: Ambulatory Orders Oseltamivir Phosphate [Tamiflu -] 75 mg PO BID #9 capsule 05/03/17 Doxycycline Monohydrate [Mondoxyne Nl] 100 mg PO BID #28 capsule 05/04/17 Anemia: No Asthma: No Cancer: No Cardiac Disorders: No CVA: No COPD: No CHF: No Dementia: No Diabetes: No GI Disorders: No Disorders: No HTN: No Hypercholesterolemia: No Liver Disease: No Seizures: No Thyroid Disease: No - Psycho Social/Smoking Cessation Hx Smoking History: Never smoked Have you smoked in the past 12 months: No Information on smoking cessation initiated: No Hx Alcohol Use: No Drug/Substance Use Hx: No Substance Use Type: None Hx Substance Use Treatment: No *Physical Exam - Vital Signs Last Vital Signs Temp Pulse Resp BP Pulse Ox 98.2 F 88 18 148/80 100 12/23/18 21:05 12/23/18 21:05 12/23/18 21:05 12/23/18 21:05 12/23/18 21:05 ED Treatment Course - LABORATORY CBC & Chemistry Diagram: 12/23/18 23:30 12/23/18 23:30 Medical Decision Making - Medical Decision Making 12/23/18 23:59 HPI: 23yo M no PMH presents from home c/o 2 days intermittent lower abdominal stabbing pain, RLQ/suprapubic>LLQ, worsening in severity, worst today causing him to have to stop walking and keel over, occurs randomly not specifically associated with movement or exertion or rest or eating, sometimes gradual and sometimes sudden onset, yesterday radiating to testicles, sometimes radiating to R flank, no hx of similar sx, has not tried pain meds. Also today noticed rectal pain, worse with BM, so after googling, felt anus and felt a bump tender to touch which thought was hemorrhoid. Denies constipation or straining, 1BM daily per usual, today 1 episode of watery NB diarrhea. Denies trauma, heavy lifting, inciting event, sick contact, travel, new food, recent antibiotic use, fever, chills, fatigue, headache, dizziness, numbness/tingling, weakness, vision changes, shortness of breath, cough, chest pain, palpitations, leg swelling, blood in stool, constipation, nausea, vomiting, dysuria, hematuria, frequency, urgency, penile discharge, testicular swelling, penile swelling, genital rash, confusion. States pain is not present at this moment, stomach just feels weird. No hx STIs. ROS: Constitutional: Negative for chills, fever, fatigue, diaphoresis. HENT: Negative for sore throat, rhinorrhea, congestion. Eyes: Negative for visual disturbance. Respiratory: Negative for shortness of breath, cough, and wheezing. Cardiovascular: Negative for chest pain, palpitations, and leg swelling. Gastrointestinal: Positive for abdominal pain, diarrhea, rectal pain and ? external hemorrhoid. Negative for blood in stool, constipation, nausea, and vomiting. Genitourinary: Positive for flank pain, testicular pain, Negative for dysuria, flank pain, and hematuria. Musculoskeletal: Negative for myalgias, back pain, and neck pain. Skin: Negative for rash. Neurological: Negative for light-headedness, dizziness, vertigo, syncope, weakness, numbness and headaches. Psychiatric/Behavioral: Negative for behavioral problems and confusion. PE: Gen: Alert, NAD, comfortable-appearing. HEENT: PERRL, EOMI, MMM, NCAT. No conjunctival pallor. Sclera are non-icteric. Oropharynx is clear. CV: Regular rate and rhythm. No murmurs, rubs, or gallops. PULM: No resp distress. CTAB, no wheezes, rales, or rhonchi. ABD: soft, minimal TTP suprapubic and RLQ, ND, no rebound tenderness or guarding , minimal R CVA tenderness. : Normal testicular and penile exam without rash or discharge or swelling; cremasteric reflex intact b/l; no abnormal lie of testes. No hernias or masses seen or felt. External rectal exam shows no blood or hemorrhoids or rash, <1cm linear black patrice possibly anal fissure. Perineum clear. BACK: No TTP of c/t/l-spine. No step-offs or deformities. MSK: No bony deformities. 2+ pulses in all extremities. NEURO: AAOx3. PERRL. No gross CN deficits. Strength and sensation grossly intact throughout. EXTREMITIES: No cyanosis. No clubbing. No edema. No calf tenderness. PSYCH: Normal mood and thought pattern. SKIN: Warm and dry. Normal capillary refill. No rashes. No jaundice. MDM: 23yo M no PMH presents from home with 2 days intermittent lower abdominal stabbing pain, RLQ/suprapubic>LLQ, worsening in severity, worst today causing him to have to stop walking and keel over, occurs randomly not specifically associated with movement or exertion or rest or eating, gradual/sudden onset, yesterday radiating to testicles, sometimes radiating to R flank; plus 1 day of rectal pain with anal bump and 1 episode of diarrhea today. Hemodynamically stable, afebrile, benign testicular exam, rectal exam consistent w/anal fissure , minimal R CVA tenderness, minimal TTP suprapubic and RLQ, non-acute abdomen. Due to location and radiation of pain, concern for renal pathology (UTI/pyelo, kidney stone) vs appendicitis (though lower concern due to intermittent nature and lack of N/V/F). Low concern for testicular torsion due to just 1 day of radiation to testicles and benign testicular exam. 1 episode of diarrhea and anal fissure also suggestive of constipation, colitis, or a viral GI infection. Lower concern for other GI pathology such as diverticulitis, pancreatitis, cholelithiasis/cystitis, or colitis due to presentation and location of pain. Also consider anemia or metabolic derangement. No e/o hernia on exam. Presentation and exam not concerning for STI. -CBC,CMP,Lipase,Mg,Phos,UA/UC -Pending labs, consider CTAP w/contrast -Dispo: pending w/u 12/24/18 01:06 Labs reviewed. No concerning findings. Pain still mild, but still concerned for atypical appendicitis, kidney stone, or other acute abdominal pathology. Pt refused CT scan and wants to go home. Discussed risks of leaving AMA and not getting CT scan and treatment including possible surgery. Pt understands and still refuses and wants to go home. Leave AMA. Discharge - Discharge Information Problems reviewed: Yes Clinical Impression/Diagnosis: Stomach cramps, generalized Condition: Stable Disposition: AGAINST MEDICAL ADVICE - Admission No - Follow up/Referral Referrals: ON STAFF,NOT [Primary Care Provider] - - Patient Discharge Instructions Patient Printed Discharge Instructions: DI for Kidney Stones, DI for Appendicitis -- Adult, Testicular Torsion Additional Instructions: You have been seen in the Emergency Department for your abdominal pain. Your labs show no signs of an emergent condition, but your history and physical exam are still concerning for serious conditions including but not limited to appendicitis, kidney stone, or testicular torsion. We recommended a CT scan of your abdomen but you refused and want to go home. You have signed an AMA ( against medical advice). Please return to the Emergency Department immediately if you experience any new , worsening, or concerning symptoms such as worsening pain, testicular swelling or pain, fever, nausea or vomiting, inability to eat, or blood in stool. Also please return to the Emergency Department if you would like to get the CT scan, further evaluation, and treatment - you are always welcome back. Follow up with your primary care doctor as soon as possible in the next few days. - Post Discharge Activity
--- NOTE | 2018-12-23 22:53 | PDOC ---
Documentation entered by Kasia Whalen SCRIBE, acting as scribe for Elda Boss MD. Elda Boss MD: This documentation has been prepared by the Koby brown Xhesika, SCRIBE, under my direction and personally reviewed by me in its entirety. I confirm that the documentation accurately reflects all work, treatment, procedures, and medical decision making performed by me. Attending Attestation - Resident Resident Name: RobAry - ED Attending Attestation I have performed the following: I have examined & evaluated the patient, The case was reviewed & discussed with the resident, I agree w/resident's findings & plan, Exceptions are as noted - HPI HPI: 12/23/18 23:09 The patient is a 23 year old male with a significant PMH of who presents to the emergency department for several days of intermittent, sharp, L flank pain and abdominal pain. Patient notes his symptoms are associated with testicular pain and rectal pain, started googling his symptoms and thought he had a hemorrhoid, which prompted his arrival to the ED. The patient denies chest pain , shortness of breath, headache. Denies fever, chills, cough, nausea, vomiting, diarrhea and constipation. Denies dysuria, frequency, urgency and hematuria. Allergies: NKDA PCP: Eros Abdul - Physicial Exam PE: 12/23/18 23:10 GENERAL: Awake, alert, and fully oriented, in no acute distress NECK: Normal ROM, supple, no lymphadenopathy, JVD, or masses LUNGS: Breath sounds equal, clear to auscultation bilaterally. No wheezes, and no crackles HEART: Regular rate and rhythm, normal S1 and S2, no murmurs, rubs or gallops ABDOMEN: Soft, nontender, normoactive bowel sounds. No guarding, no rebound. No masses RECTAL: + small healing fissure ,No hemorrhoids appreciated + cremasteric ,no erythema EXTREMITIES: Normal range of motion, no edema. No clubbing or cyanosis. No cords, erythema, or tenderness NEUROLOGICAL: Cranial nerves II through XII grossly intact. SKIN: Warm, Dry, normal turgor, no rashes or lesions noted. 12/24/18 01:27 - Medical Decision Making 12/24/18 01:28 Discussed getting an imaging study to rule out stones or acute appendicitis and the patient did not want a CAT scan because of the radiation Discussed risks and consequences of not having imaging study to rule out appendicitis at this time Patient signed AMA with his as witness Patient told to please return if he has any worsening symptoms or any other concerns
[2018-12-23 23:46] LABS: URINE APPEARANCE TURBID; URINE BILIRUBIN NEGATIVE (NEGATIVE); URINE COLOR YELLOW; URINE GLUCOSE (UA) NEGATIVE (NEGATIVE); URINE KETONE NEGATIVE (NEGATIVE); URINE LEUK ESTERASE NEGATIVE (NEGATIVE); URINE NITRITE NEGATIVE (NEGATIVE); URINE PROTEIN NEGATIVE (NEGATIVE)
[2018-12-24 00:20] LABS: BASO % 0.3 % (0-2.0); EOS % 1.9 % (0-4.5); HEMATOCRIT 44.7 % (35.4-49); HEMOGLOBIN 14.9 GM/dL (11.7-16.9); LYMPH % 42.9 % (8-40); MCH 30.3 pg (25.7-33.7); MCHC 33.4 g/dl (32.0-35.9); MEAN CELL VOLUME 90.7 fl (80-96); MEAN PLT VOLUME 9.4 fl (7.5-11.1); MONO % 7.7 % (3.8-10.2); NEUT % 47.2 % (42.8-82.8); PLATELET COUNT 223 K/MM3 (134-434); RBC 4.92 M/mm3 (4.00-5.60); WHITE BLOOD COUNT 6.5 K/mm3 (4.0-10.0)
[2018-12-24 00:46] LABS: ALBUMIN 4.4 g/dl (3.4-5.0); BILIRUBIN,TOTAL 0.3 mg/dL (0.2-1); BLOOD UREA NITROGEN 14.5 mg/dL (7-18); CALCIUM 9.2 mg/dL (8.5-10.1); POTASSIUM 3.9 mmol/L (3.5-5.1); TOT PROT 7.4 g/dl (6.4-8.2)
== END 2018-12-24 01:15 | disposition left against medical advice (07) ==
LOC: JER 20:51
DX: R10.84 Generalized abdominal pain (principal)
CPT/HCPCS: 36415; 80053; 81003; 83690; 83735; 84100; 85025; 87086; 99282-25